=== PATIENT | male | born 1980 | race Two or more races ===

== ENCOUNTER 2018-10-17 13:41 | Emergency (ER) | payer MEDICAID ==
[~2018-10-17] VITALS: Ht 162.6 cm; Wt 85.7 kg
[2018-10-17] MEDS ORDERED: ENOXAPARIN SODIUM 100 MG/ML DISP.SYRIN SQ ONE (13:42)
--- NOTE | 2018-10-17 15:30 | NUR ---
PT SENT HERE TO R/O DVT ON LT LOWER EXT. PT AAOX4, VSS. DENIES CP, SOB, DIZZINESS, N/V, WEAKNESS @ THIS TIME. SEEN & EVAL'D BY MIKEY WIGGINS & WILL CONT TO MONITOR.
[2018-10-17 15:40] LABS: BASOPHILS # (AUTO) 0.1 /CMM (0.0-0.2); BASOPHILS % (AUTO) 1.1 % (0.0-2.0); EOSINOPHILS % (AUTO) 5.8 % (0.0-6.0); HEMATOCRIT 41 % (39-51); HEMOGLOBIN 14.2 g/dL (13.5-17.5); LYMPHOCYTES # (AUTO) 1.7 /CMM (0.8-4.8); LYMPHOCYTES % (AUTO) 21.1 % (20.0-44.0); MEAN CORPUSCULAR HGB CONC 35 g/dl (31.0-36.0); MEAN CORPUSCULAR VOLUME 88 fL (80-96); MONOCYTES # (AUTO) 0.8 /CMM (0.1-1.30); MONOCYTES % (AUTO) 9.5 % (2.0-12.0); NEUTROPHILS # (AUTO) 5.2 /CMM (1.8-8.9); NEUTROPHILS % (AUTO) 62.5 % (43.0-81.0); PLATELET COUNT (AUTO) 326 /CMM (150-450); RED BLOOD CELL COUNT(AUTO) 4.63 MIL/uL (4.5-6.0); WHITE BLOOD COUNT (AUTO) 8.3 K/uL (4.3-11.0)
[2018-10-17 15:45] LABS: CALCIUM, SERUM 8.7 mg/dL (8.5-10.1); CREATININE 0.8 mg/dL (0.6-1.3)
[2018-10-17 15:50] LABS: ALBUMIN 3.9 g/dL (3.4-5.0); BILIRUBIN,TOTAL 0.2 mg/dL (0.2-1.0); TOTAL PROTEIN, SERUM 7.1 g/dL (6.4-8.2)
[2018-10-17 16:01] LABS: C-REACTIVE PROTEIN 3.9 mg/dL (0.0-0.9)
[2018-10-17] MEDS ORDERED: ENOXAPARIN SODIUM 80 MG/0.8 ML DISP.SYRIN SQ ONE (17:00)
--- NOTE | 2018-10-17 17:22 | NUR ---
MEDICATED PER MIKEY WIGGINS'S ORDER. PT MARITO WELL.
--- NOTE | 2018-10-17 17:50 | NUR ---
Lenore love in [facility] - 10/17/18 at 1751 by KASSANDRA FATUMA RIVAS
--- NOTE | 2018-10-17 17:50 | NUR ---
CALLED [facility], PAGED MOHAN
--- NOTE | 2018-10-17 17:51 | NUR ---
CALLED [facility], CHRISD NANI ORTEGA
--- NOTE | 2018-10-17 19:42 | NUR ---
Patient discharged to home in stable condition. Written and verbal after care instructions given. Patient verbalizes understanding of instruction. INSTRUCTED TO RETURN TO ER TOMORROW @ 6 AM FOR NEXT DOSE OF LOVENOX. PT ACKNOWLEDGED WITH VERBAL UNDERSTANDING.
[2018-10-17 19:45] VITALS: BP 118/75
== END 2018-10-17 19:47 | disposition home or self-care (01) ==
LOC: ER 13:41
DX: I82.402 Acute embolism and thrombosis of unspecified deep veins of left lower extremity (principal); Z85.6 Personal history of leukemia
CPT/HCPCS: 36415; 80053; 85025; 85730; 86140; 86431; 87081; 93970; 96372; 99284; J1650

== ENCOUNTER 2018-10-18 07:34 | Emergency (ER) | payer MEDICAID ==
[~2018-10-18] VITALS: Ht 162.6 cm; Wt 82.1 kg
[2018-10-18 07:49] VITALS: BP 120/75
[2018-10-18] MEDS ORDERED: ENOXAPARIN SODIUM 80 MG/0.8 ML DISP.SYRIN SQ ONE (08:07)
[2018-10-18] MEDS ORDERED: ENOXAPARIN SODIUM 80 MG/0.8 ML DISP.SYRIN SQ SCH (09:00)
== END 2018-10-18 08:23 | disposition home or self-care (01) ==
LOC: ER 07:38
DX: I82.409 Acute embolism and thrombosis of unspecified deep veins of unspecified lower extremity (principal); F17.200 Nicotine dependence, unspecified, uncomplicated
CPT/HCPCS: 96372; 99283; J1650